=== PATIENT | male | born 1975 | race Hispanic/Latino ===

== ENCOUNTER 2017-11-24 04:56 | Inpatient (IN) | payer BC ==
[~2017-11-24] VITALS: Ht 182.9 cm; Wt 133.8 kg
[2017-11-24 05:30] LABS: APPEARANCE,URINE Clear (CLEAR); BILIRUBIN,URINE Negative (NEGATIVE); COLOR,URINE Yellow (YELLOW); GLUCOSE, URINE (UA) Negative (NEGATIVE); KETONES,URINE Negative (NEGATIVE); LEUKOCYTE ESTERASE ,URINE Negative (NEGATIVE); NITRATE,URINE Negative (NEGATIVE); OCCULT BLOOD,URINE Negative (NEGATIVE); PROTEIN,URINE Negative (NEGATIVE)
[2017-11-24 05:39] LABS: BASOPHILS % (AUTO) 0.5 % (0.0-5.0); EOSINOPHILS % (AUTO) 0.9 % (0.0-8.0); HEMATOCRIT 45.3 % (42-54); LYMPHOCYTES % (AUTO) 10.6 % (21.0-51.0); MEAN CORPUSCULAR HEMOGLOBIN 28.4 pg (27.0-33.0); MEAN CORPUSCULAR HGB CONC 33.7 g/dL (32.0-36.0); MEAN CORPUSCULAR VOLUME 84.1 fL (79-99); MONOCYTES % (AUTO) 6.2 % (3.0-13.0); NEUTROPHILS % (AUTO) 81.8 % (40.0-77.0); PLATELET COUNT (AUTO) 311 K/uL (130-400); RED BLOOD CELL COUNT(AUTO) 5.39 MIL/uL (4.50-6.20); RED CELL DISTRIBUTION WIDTH 12.9 % (11.0-15.5); WHITE BLOOD COUNT (AUTO) 18.5 K/uL (4.8-10.8)
[2017-11-24 05:45] LABS: POTASSIUM 3.9 mmol/L (3.5-5.1)
[2017-11-24 05:49] LABS: ALBUMIN 3.8 g/dL (3.5-5.0); BILIRUBIN,TOTAL 0.9 mg/dL (0.2-1.0); TOTAL PROTEIN, SERUM 8.3 g/dL (6.0-8.3)
[2017-11-24] MEDS ORDERED: ONDANSETRON HCL 4 MG/2 ML VIAL ONE (05:59)
[2017-11-24] MEDS ORDERED: MORPHINE SULFATE 4 MG/1ML SYG ONE (06:00)
[2017-11-24] MEDS ORDERED: ZOLPIDEM TARTRATE 5 MG TAB PO PRN (07:00)
[2017-11-24] MEDS ORDERED: ACETAMINOPHEN 325 MG TAB PO PRN (07:00)
[2017-11-24] MEDS ORDERED: MORPHINE SULFATE 4 MG/1ML SYG IV PRN (07:00)
[2017-11-24] MEDS: LEVOFLOXACIN 500 MG/D5W 100 ML 100 ML IV SCH (07:00)
[2017-11-24] MEDS ORDERED: MORPHINE SULFATE 2 MG/ML 1ML SYG IV PRN (07:00)
[2017-11-24] MEDS ORDERED: HYDRALAZINE HCL 20 MG/ML VIAL IV PRN (07:00)
[2017-11-24] MEDS ORDERED: ONDANSETRON HCL 4 MG/2 ML VIAL IV PRN (07:00)
[2017-11-24] MEDS ORDERED: METRONIDAZOLE 500MG/100ML BAG 100 ML ONE (07:09)
[2017-11-24] MEDS ORDERED: SODIUM CHLORIDE 0.9% 1000ML 1,000 ML IV ONE (07:47)
[2017-11-24] MEDS ORDERED: ENOXAPARIN SODIUM 40 MG/0.4 ML SYRINGE SQ ONE (07:47)
[2017-11-24] MEDS: METRONIDAZOLE 500MG/100ML BAG 100 ML IV SCH ×2 (08:00→15:56)
[2017-11-24] MEDS: FAMOTIDINE/PF 20 MG/2 ML VIAL IV SCH ×2 (09:00→21:35)
[2017-11-24] MEDS: ENOXAPARIN SODIUM 40 MG/0.4 ML SYRINGE SQ SCH (09:00)
[2017-11-24] MEDS ORDERED: LEVOFLOXACIN 500 MG/D5W 100 ML 100 ML ONE (09:15)
[2017-11-24 12:15] VITALS: BP 148/95
[2017-11-24] MEDS: SODIUM CHLORIDE 0.9% 1000ML 1,000 ML IV SCH ×3 (12:31→21:35)
[2017-11-24 16:00] VITALS: BP 167/80
[2017-11-24 20:00] VITALS: BP 122/72
[2017-11-25 00:03] VITALS: BP 127/76
[2017-11-25] MEDS: METRONIDAZOLE 500MG/100ML BAG 100 ML IV SCH ×2 (00:36→08:04)
[2017-11-25 04:00] VITALS: BP 116/72
[2017-11-25] MEDS: LEVOFLOXACIN 500 MG/D5W 100 ML 100 ML IV SCH (06:13)
[2017-11-25 07:30] VITALS: BP 127/79
[2017-11-25] MEDS: FAMOTIDINE/PF 20 MG/2 ML VIAL IV SCH (08:04)
[2017-11-25] MEDS: ENOXAPARIN SODIUM 40 MG/0.4 ML SYRINGE SQ SCH (08:05)
[2017-11-25] MEDS ORDERED: TYL3 PO (08:05)
[2017-11-25] MEDS ORDERED: AMOX-429 PO (08:05)
[2017-11-25 11:00] VITALS: BP 123/77
[2017-11-25] MEDS: SODIUM CHLORIDE 0.9% 1000ML 1,000 ML IV SCH (11:55)
== END 2017-11-25 12:57 | disposition home or self-care (01) | DRG 392 ==
LOC: EDH 04:56 → EDHIP 06:55 → 3AH 11:56
PROVIDERS: ADMIT Internal Medicine; ATTEND Internal Medicine
DX: K57.92 Diverticulitis of intestine, part unspecified, without perforation or abscess without bleeding (principal); E86.1 Hypovolemia; Z83.3 Family history of diabetes mellitus
CPT/HCPCS: 36415; 74176; 80053; 81003; 83690; 85025; 86140; J1650; J1956; J2270; J2405; J3490; J7030

== ENCOUNTER 2023-04-29 18:36 | Emergency (ER) | payer BC ==
[~2023-04-29] VITALS: Ht 182.9 cm; Wt 122.5 kg
[~2023-04-29 18:36] MED LIST: AMOX-429 PO; TYL3 PO
[2023-04-29 19:34] LABS: BASOPHILS # (AUTO) 0.06 K/uL (0.00-0.20); BASOPHILS % (AUTO) 0.6 % (0.0-5.0); EOSINOPHILS # (AUTO) 0.23 K/uL (0.00-0.70); EOSINOPHILS % (AUTO) 2.4 % (0.0-8.0); HEMATOCRIT 47.8 % (42-54); IMMATURE GRANULOCYTE ABSOLUTE 0.03 K/uL (0-1); LYMPHOCYTES # (AUTO) 1.3 K/uL (1.0-4.8); MEAN CORPUSCULAR HEMOGLOBIN 28.5 pg (27.0-33.0); MEAN CORPUSCULAR HGB CONC 33.1 g/dL (32.0-36.0); MEAN CORPUSCULAR VOLUME 86.3 fL (79-99); MONOCYTES # (AUTO) 0.7 K/uL (0.1-1.0); MONOCYTES % (AUTO) 7.6 % (3.0-13.0); NEUTROPHILS # (AUTO) 7.3 K/uL (1.8-7.7); NEUTROPHILS % (AUTO) 76.1 % (40.0-77.0); PLATELET COUNT (AUTO) 279 K/uL (130-400); RED BLOOD CELL COUNT(AUTO) 5.54 MIL/uL (4.50-6.20); RED CELL DISTRIBUTION WIDTH 12.9 % (11.0-15.5); WHITE BLOOD COUNT (AUTO) 9.6 K/uL (4.8-10.8)
[2023-04-29 19:43] LABS: CREATININE 0.8 mg/dL (0.5-1.3); POTASSIUM 3.8 mmol/L (3.5-5.1)
[2023-04-29 20:02] LABS: ALBUMIN 3.8 g/dL (3.5-5.0); BILIRUBIN,TOTAL 6.3 mg/dL (0.2-1.0); TOTAL PROTEIN, SERUM 7.6 g/dL (6.0-8.3)
[2023-04-29 21:00] VITALS: BP 135/93; PULSE 88; RESP 18
[2023-04-29 21:53] LABS: APPEARANCE,URINE CLOUDY (CLEAR); BILIRUBIN,URINE 8 mg/dL (NEGATIVE); COLOR,URINE DARK-YELLOW (YELLOW); GLUCOSE, URINE (UA) NEGATIVE (NEGATIVE); KETONES,URINE NEGATIVE (NEGATIVE); LEUKOCYTE ESTERASE ,URINE NEGATIVE Leu/uL (NEGATIVE); NITRATE,URINE NEGATIVE (NEGATIVE); OCCULT BLOOD,URINE NEGATIVE (NEGATIVE); PROTEIN,URINE 30 mg/dL (NEGATIVE)
[2023-04-29 21:55] LABS: ADD UA MICROSCOPIC YES
[2023-04-29 21:56] LABS: BACTERIA,URINE RARE /HPF (None Seen); MUCUS,URINE MOD LPF (None Seen); RBC,URINE 0-1 /HPF (0-1); UNCLASSIFIED CRYSTAL 2 /HPF (None Seen)
[2023-04-29] MEDS: FAMOTIDINE 20MG VIAL IV ONE (22:18)
[2023-04-29] MEDS: METOCLOPRAMIDE 10 MG/2 ML VIAL IVP ONE (22:18)
[2023-04-29] MEDS: MAG/ALUM/SIMETH 30 ML UDCUP PO ONE (22:19)
[2023-04-29] MEDS: LIDOCAINE HCL 2% VISCOUS 15 ML UDCUP PO ONE (22:19)
[2023-04-29] MEDS: ASPIRIN 325MG TAB PO ONE (22:19)
[2023-04-29] MEDS: ENOXAPARIN SODIUM 120 MG/0.8ML SQ ONE (22:21)
[2023-04-29] MEDS ORDERED: POLY17PO4 PO (23:45)
[2023-04-29] MEDS ORDERED: PANT40TA PO (23:45)
[2023-04-29] MEDS ORDERED: METO-296 PO (23:45)
== END 2023-04-30 00:04 | disposition home or self-care (01) ==
LOC: EDH 18:36
DX: K21.9 Gastro-esophageal reflux disease without esophagitis (principal); K76.0 Fatty (change of) liver, not elsewhere classified; I10 Essential (primary) hypertension; E11.9 Type 2 diabetes mellitus without complications; Z90.89 Acquired absence of other organs
CPT/HCPCS: 99284; 96374; 76705; 96375; 84484; 80053; 83690; 85025; 81001; 36415; 93005; 96372; J3490; J2765; J1650